=== PATIENT | female | born 1945 | race Caucasian/White ===

== ENCOUNTER 2019-10-05 12:06 | Emergency (ER) | payer MEDICARE ==
[~2019-10-05] VITALS: Ht 160 cm; Wt 96.8 kg
[~2019-10-05 12:06] MED LIST: BIOT1CAP3; BUPR150T14 PO; CYAN100T12; FURO-150 PO; HYDR-4353 PO; LISI1TAB28 PO; MULT-342 PO; NAPR-1154 PO; ROPI0.252 PO
[2019-10-05] MEDS ORDERED: normal saline 1000ML IV soln IVB ONE (12:20)
[2019-10-05] MEDS: calcium chloride 100 MG/1 ML inj IV ONE ×2 (12:49→13:03)
[2019-10-05 13:00] LABS: ALANINE AMINOTRANSFERASE 41 U/L (12-78); ALBUMIN 3.3 G/DL (3.4-5.0); ALBUMIN/GLOBULIN RATIO 1.2 (1.1-1.5); ALKALINE PHOSPHATASE 175 IU/L (46-116); ANION GAP 7 (8-16); ASPARTATE AMINO TRANSFERASE 45 U/L (10-37); BILIRUBIN,TOTAL 0.3 MG/DL (0.1-1.0); BLOOD UREA NITROGEN 37 MG/DL (7-18); BUN/CREATININE RATIO 20.4 (6.6-38.0); CALCIUM 8.6 MG/DL (8.5-10.1); CHLORIDE 111 MMOL/L (99-107); CREATININE 1.81 MG/DL (0.40-0.90); GLUCOSE 122 MG/DL (70-104); POTASSIUM 4.7 MMOL/L (3.5-5.1); SODIUM 141 MMOL/L (135-145); TOTAL CARBON DIOXIDE 22.9 MMOL/L (24-32); eGFR 27 ML/MIN
[2019-10-05] MEDS ORDERED: KAY15L PO (13:28)
--- NOTE | 2019-10-05 13:42 | NUR ---
DR MAYES GAVE VERBAL TO ADMINISTER ONE LITER NS ONLY, PT HAS RECEIVED THE LITER OF NS, AMB WITH STEADY GAIT TO RESTROOM, FAMILY AT BEDSIDE
[2019-10-05 13:43] VITALS: BP 152/93
== END 2019-10-05 13:44 | disposition home or self-care (01) ==
LOC: ER 12:07
DX: E87.5 Hyperkalemia (principal); R11.10 Vomiting, unspecified; I10 Essential (primary) hypertension; Z88.2 Allergy status to sulfonamides; Z88.1 Allergy status to other antibiotic agents; Z88.8 Allergy status to other drugs, medicaments and biological substances; Z79.899 Other long term (current) drug therapy
CPT/HCPCS: 36415; 80053; 93005; 96361; 96374; 99285; J7030

== ENCOUNTER 2019-10-19 05:10 | Day surgery (SDC) | payer MEDICARE ==
[2019-10-11 11:20] LABS: BASOPHILS % (AUTO) 0.8 % (0-1); EOSINOPHILS # (AUTO) 0.3 X10'3 (0-0.9); EOSINOPHILS % (AUTO) 5.1 % (0-6); LYMPHOCYTES # (AUTO) 1.6 X10'3 (1.1-4.8); LYMPHOCYTES % (AUTO) 31.6 % (21-51); MEAN CORPUSCULAR HEMOGLOBIN 31.9 PG (27.0-31.0); MEAN CORPUSCULAR HGB CONC 33.3 g/dL (33.0-36.5); MEAN CORPUSCULAR VOLUME 95.7 FL (78-98); MEAN PLATELET VOLUME 8.1 FL (7.4-10.4); MONOCYTES # (AUTO) 0.5 X10'3 (0-0.9); MONOCYTES % (AUTO) 8.8 % (2-12); NEUTROPHILS # (AUTO) 2.8 X10'3 (1.8-7.7); NEUTROPHILS % (AUTO) 53.7 % (42-75); PRE OP HEMATOCRIT 33.1 % (35.0-45.0); PRE OP PLATELET COUNT 187 X10'3 (140-440); RED BLOOD COUNT 3.45 X10'6 (4.20-5.60); RED CELL DISTRIBUTION WIDTH 13.8 % (11.5-14.5)
[2019-10-11 11:37] LABS: ALBUMIN 3.4 G/DL (3.4-5.0); ALBUMIN/GLOBULIN RATIO 1.2 (1.1-1.5); ALKALINE PHOSPHATASE 196 IU/L (46-116); BLOOD UREA NITROGEN 33 MG/DL (7-18); CALCIUM 8.6 MG/DL (8.5-10.1); CHLORIDE 108 MMOL/L (99-107); CREATININE 1.57 MG/DL (0.40-0.90); PRE OP ALT 40 U/L (30-65); PRE OP ANION GAP 6 (8-16); PRE OP AST 33 U/L (10-37); PRE OP BILIRUB, TOTAL 0.4 MG/DL (0.0-1.0); PRE OP GLUCOSE 100 MG/DL (70-104); PRE OP POTASSIUM 4.7 MMOL/L (3.4-5.1); PRE OP SODIUM 139 MMOL/L (135-145); TOTAL CARBON DIOXIDE 25.3 MMOL/L (24-32); TOTAL PROTEIN 6.3 G/DL (6.4-8.2); eGFR 32 ML/MIN
[~2019-10-19] VITALS: Ht 162.6 cm; Wt 96.6 kg
[~2019-10-19 05:10] MED LIST changes: +ringers solution, lacted 1,000 ML IV SCH
[2019-10-19 05:30] VITALS: BP 157/74
[2019-10-19] MEDS ORDERED: cefazolin/dext.iso 2gm/100ml 100 ML IV ONE (05:30)
[2019-10-19] MEDS ORDERED: famotidine 10mg tablet PO ONE (05:30)
[2019-10-19] MEDS ORDERED: normal saline 1000ml 1,000 ML IV SCH (05:50)
[2019-10-19] MEDS ORDERED: LIDOcaine 1% (10mg/ml) 2ml vial ONE (05:51)
[2019-10-19 06:26] LABS: ISTAT CREATININE 1.5 mg/dL (0.6-1.1); ISTAT HGB 12.9 g/dl (12.0-16.0); ISTAT IONIZED CALCIUM 1.16 mmol/L (1.03-1.32); POC BUN/CREATININE RATIO 24.7 (6.6-38.0)
[2019-10-19] MEDS ORDERED: BUPIVAcaine/PF 2.5mg/ml (0.25%) 10ml vial ONE (06:37)
[2019-10-19] MEDS ORDERED: LIDOcaine 0.5% (5mg/ml) 50ml vial ONE (07:17)
[2019-10-19] MEDS ORDERED: MIDAZolam 5mg/5ml vial ONE (07:19)
[2019-10-19] MEDS ORDERED: fentaNYL/PF 50MCG/1 ML 2ML syringe ONE (07:19)
[2019-10-19] MEDS ORDERED: hydrALAZINE 20mg/ml inj. IV ONE (07:44)
[2019-10-19 07:50] VITALS: BP 165/75
--- NOTE | 2019-10-19 07:50 | NUR ---
Received from OR via [facility] , accompanied by Anesthesiologist SHAMA and report given by Anesthesiolgist. PATIENT WITH 20G PIV IN RIGHT UE RUNNING LR AT 100. DENIES PAIN. + CMS TO LEFT HAND. WRIST DRESSING IS CDI. Addendum: 10/19/19 at 0758 by Star Limon RN, RN Amended: Links added.
[2019-10-19 08:00] VITALS: BP 149/88
[2019-10-19 08:10] VITALS: BP 138/87
[2019-10-19 08:20] VITALS: BP 142/78
--- NOTE | 2019-10-19 08:30 | NUR ---
all dc criterIA HAS BEEN MET, IV OUT WITHOUT COMPLICATION. DENIES PAIN LEFT WRIST DRESSING IS CDI. VSS. AMBULATED, VOIDED AND DRESSED WITH ASSIST OF PASCALE WEBB. OUT VIA WHEELCHAIR WHERE HER SON DROVE HER HOME. ICE TO WRIST AREA., Addendum: 10/19/19 at 0839 by Star Limon RN, RN Amended: Links added.
== END 2019-10-19 08:30 | disposition home or self-care (01) ==
LOC: PAS 05:10
PROVIDERS: ATTEND Orthopaedic Surgery Hand Surgery
DX: G56.02 Carpal tunnel syndrome, left upper limb (principal); M65.332 Trigger finger, left middle finger; M25.532 Pain in left wrist; I10 Essential (primary) hypertension; Z68.36 Body mass index [BMI] 36.0-36.9, adult
CPT/HCPCS: 26055; 36415; 64721; 80047; 80053; 85025; J0360; J2001; J2250; J3010; J3490; J7030; A4215; J7120